=== PATIENT | male | born 1960 | race Caucasian/White ===

== ENCOUNTER → 2016-10-24 | Outpatient (CLI) | payer OTHER | END | disposition home or self-care (01) | LOC: NUC 09:00 | DX: M17.12 Unilateral primary osteoarthritis, left knee (principal); M19.072 Primary osteoarthritis, left ankle and foot; M19.071 Primary osteoarthritis, right ankle and foot | CPT/HCPCS: 78315; A9503 ==

== ENCOUNTER 2017-07-21 22:53 | Emergency (ER) | payer OTHER ==
[~2017-07-21] VITALS: Ht 180.3 cm; Wt 90.0 kg
[2017-07-21 23:29] LABS: HEMATOCRIT 41.2 % (38.0-50.0); HEMOGLOBIN 14.3 G/DL (12.5-16.6); MCH 30.8 PG (29.0-34.0); MCHC 34.7 G/DL (30.0-36.0); MCV 88.6 FL (86-99); PLATELET COUNT 243 K/uL (156-360); RBC DIS.WIDTH-CV 12.8 % (11.8-14.6); RBC DIS.WIDTH-SD 41.7 % (39-53); RED BLOOD COUNT 4.65 M/uL (4.00-5.50); WHITE BLOOD COUNT 8.6 K/uL (4.1-10.2)
[2017-07-21 23:38] LABS: D-DIMER ELISA < 150.00 ng/mLDDU (<230)
[2017-07-21 23:41] LABS: CHLORIDE 106 mEq/L (99-109); POTASSIUM 3.8 mEq/L (3.7-5.4); SODIUM 143 mEq/L (136-147)
[2017-07-21 23:42] LABS: GLUCOSE 103 mg/dL (70-99)
[2017-07-21 23:46] LABS: CREATININE 0.9 mg/dL (0.6-1.3); GFR ESTIMATE (CALCULATED) > 59 mL/min/ (58.99-99999)
[2017-07-21 23:47] LABS: UREA NITROGEN (BUN) 20 mg/dL (9-23)
[2017-07-21 23:54] LABS: TROP-I INTERPRETATION NEGATIVE; TROPONIN-I < 0.01 ng/mL (0.0-0.30)
[2017-07-22 01:31] LABS: TROP-I INTERPRETATION NEGATIVE; TROPONIN-I < 0.01 ng/mL (0.0-0.30)
[2017-07-22 02:13] VITALS: BP 142/94
== END 2017-07-22 02:16 | disposition home or self-care (01) ==
LOC: EME 22:53
PROVIDERS: Emergency Medicine
DX: R07.2 Precordial pain (principal); I10 Essential (primary) hypertension
CPT/HCPCS: 71046; 80048; 83880; 84484; 85027; 85379; 93005; 99281; 99284

== ENCOUNTER 2017-08-01 09:53 | Day surgery (SDC) | payer OTHER ==
[~2017-08-01] VITALS: Ht 180.3 cm; Wt 88.5 kg
[~2017-08-01 09:53] MED LIST: AMLODIPINE BES2.5 MG PO; ASPIR-LOW81 MG PO; BENAZEPRIL HCL10 MG PO; BENAZEPRIL HCL20 MG PO; CRESTOR20 MG PO
== END 2017-08-01 15:16 | disposition home or self-care (01) ==
LOC: CATH 09:53
DX: I25.10 Atherosclerotic heart disease of native coronary artery without angina pectoris (principal); I10 Essential (primary) hypertension; E78.5 Hyperlipidemia, unspecified; Z79.82 Long term (current) use of aspirin
CPT/HCPCS: C1769; C1887; J1644; J2250; J3010; J7040